=== PATIENT | female | born 1955 | race Caucasian/White ===

== ENCOUNTER 2017-07-19 12:25 | Observation (INO) ==
--- NOTE | 2017-07-19 12:27 | Emergency Department Note ---
Disposition Clinical Impression: Weakness, Light headed, Numbness and tingling of left leg Disposition: Admitted As Inpatient Condition: Good Referrals: Low Steinberg MD [Family Provider] - NONE,PCP [Primary Care Provider] - Forms: ED Satisfaction Letter Time of Disposition: 14:42 Weakness HPI - General Chief complaint: ED Weakness Stated complaint: WEAK/DIZZY Time Seen by Provider: 07/19/17 12:26 Source: patient Mode of arrival: ambulatory Limitations: no limitations Nursing Notes Reviewed: Yes Vital Signs Reviewed: Yes - History of Present Illness HPI Narrative: Patient is a 61-year-old female with past medical history previous CVA that has left her with residual left upper extremity and left lower extremity weakness. She was seen here initially for stroke and was sent to [place] due to the patient having hemorrhagic stroke. She was subsequently sent home. Since then , she has been having generalized weakness. She started having new onset tingling in her left lower extremity for the past 2-3 days. She also admits to lightheadedness. Denies any vertigo. Denies any other chest pain, shortness of breath, nausea, vomiting, fevers, diarrhea. She states that she is weak to the point that she can no longer ambulate safely by herself at home. She was recently treated for UTI as well, recently finished Macrobid within the past few days. No further dysuria, hematuria. She does admit to mild increase in frequency. - Related Data Allergies Allergy/AdvReac Type Severity Reaction Status Date / Time No Known Allergies Allergy Verified 05/07/17 22:18 All systems ED: reviewed and negative except as stated. Constitutional: Denies: fever Cardiovascular: Denies: chest pain, palpitations Respiratory: Denies: cough, dyspnea, wheezes Gastrointestinal: Denies: abdominal pain, nausea, vomiting, diarrhea Genitourinary: Reports: frequency. Denies: urgency, dysuria, hematuria, discharge Neurological: Denies: headache, weakness, numbness, paresthesias Endocrine: Reports: fatigue Past Medical History - Past Medical History Attestation: Yes The following information was validated with the patient. Source: patient Medical history: Reports: coronary artery disease, hypertension Psychiatric history: Reports: no psych history - Social History Smoking Status: Never smoker Smokeless Tobacco Status: No Alcohol use: Reports: none Drug use: Reports: none Physical Exam - General Limitations: no limitations General appearance: alert, in no apparent distress - Head Head exam: atraumatic, normocephalic, normal inspection - Eye Eye exam: Present: normal appearance, PERRL, EOMI - ENT ENT exam: normal exam, normal oropharynx, mucous membranes moist - Neck Neck exam: Present: normal inspection, full ROM, trachea midline - Chest Chest inspection: Present: normal inspection, symmetric chest wall rise - Respiratory Respiratory exam: Present: normal lung sounds bilaterally - Cardiovascular Cardiovascular exam: Present: regular rate, normal rhythm, normal heart sounds - Abdominal Exam Abdominal exam: Present: soft, Non-Tender. Absent: tenderness, distention, guarding, rebound, rigidity - Extremities Exam Extremities exam: Present: normal inspection, full ROM. Absent: tenderness, pedal edema - Neurological Exam Neurological exam: Present: alert, oriented X3, CN II-XII intact - Expanded Neurological Exam Patient oriented to: Present: person, place, time Speech: Present: fluid speech Cranial nerves: EOM function (II, III, IV, ): Normal, facial sensation (V): Normal, facial palsy (VII): Normal, spinal accessory function (XI): Normal, tongue deviation (XII): Normal Motor strength - LUE: 4/5 Motor strength - RUE: 5/5 Motor strength - LLE: 4/5 Motor strength - RLE: 5/5 Sensory exam upper extremity: light touch: Normal Sensory exam lower extremity: light touch: Normal Coma Scale Eye Opening: Spontaneous Coma Scale Motor Response: Obeys Commands Coma Scale Verbal Response: Oriented Coma Scale Total: 15 - Psychiatric Psychiatric exam: Present: normal affect, normal mood - Skin Skin exam: Present: warm, dry, intact, normal color Course Course Narrative: Patient has left upper extremity and left lower extremity chronic weakness that is baseline since her previous stroke. Basic workup showed no UTI, no major electrolyte abnormality, no major CBC abnormality. Chest x-ray was negative for any acute cardiopulmonary process. Head CT shows stable right basal ganglia stroke but no acute intracranial hemorrhage or abnormality. Patient is overall weak, unable to ambulate safely. We will admit to the hospitalist for further care. Recommend further MRI due to new-onset tingling in LLE 2-3 days ago, difficulty with ambulation. Patient would also benefit from PT/OT. Chest X-Ray 07/19/17 12:34 IMPRESSION: No acute process. D/ / Amparo Dennis MD / Amparo Dennis MD Interpreting Provider: Amparo Dennis MD Head CT 07/19/17 12:34 IMPRESSION: Stable sequela of right basal ganglia hemorrhage seen on prior CTs. No acute intracranial hemorrhage or acute intracranial abnormality. D/ / Mikael Horne MD / Mikael Horne MD Interpreting Provider: Mikael Horne MD Vital Signs Temperature 98.4 F 07/19/17 12:26 Pulse Rate 77 07/19/17 12:26 Respiratory Rate 16 07/19/17 12:26 Blood Pressure 141/96 07/19/17 12:26 O2 Sat by Pulse Oximetry 98 07/19/17 12:26 Temperature 98.4 F 07/19/17 12:26 Pulse Rate 77 07/19/17 13:53 Respiratory Rate 16 07/19/17 13:53 Blood Pressure 141/96 07/19/17 13:53 O2 Sat by Pulse Oximetry 97 07/19/17 13:53 Oxygen Delivery Oxygen Delivery Room Air Weakness - MDM Narrative Medical decision making narrative: Patient has left upper extremity and left lower extremity chronic weakness that is baseline since her previous stroke. Basic workup showed no UTI, no major electrolyte abnormality, no major CBC abnormality. Chest x-ray was negative for any acute cardiopulmonary process. Head CT shows stable right basal ganglia stroke but no acute intracranial hemorrhage or abnormality. Patient is overall weak, unable to ambulate safely. We will admit to the hospitalist for further care. Recommend further MRI due to new-onset tingling in LLE 2-3 days ago, difficulty with ambulation. Patient would also benefit from PT/OT. - Medical Records Medical records reviewed: Yes I reviewed the patient's medical records. - Lab Data Lab results reviewed: Yes I reviewed the patient's lab results. Result diagrams: 07/19/17 12:42 07/19/17 12:42 Lab Results 06/03/0707/19/17 07/19/17 Range/Units 12:42 12:42 12:42 WBC 6.0 (4.3-11.1) K/mcL RBC 3.68 L (3.82-4.97) M/mcL Hgb 12.1 (11.5-15.4) g/dL Hct 33.2 L (35.3-44.9) % MCV 90.2 (83.0-100.0) fL MCH 32.9 (28.0-33.3) pg MCHC 36.4 H (31.6-35.5) g/dL RDW 12.3 (11.5-14.5) % Plt Count 371 (140-400) K/mcL MPV 8.4 L (9.4-12.4) fL Immature Gran % 0.2 (0-4) % Seg Neutrophils % 74.9 % Lymphocytes % 19.8 % Monocytes % 4.5 % Eosinophils % 0.3 % Basophils % 0.3 % Neutrophils # 4.5 (1.6-8.9) K/mcL Lymphocytes # 1.2 (0.6-4.6) K/mcL Monocytes # 0.3 (0.0-1.3) K/mcL Eosinophils # 0.0 (0.0-0.6) K/mcL Basophils # 0.0 (0.0-0.2) K/mcL Sodium 141 (136-145) mEq/L Potassium 3.3 L (3.5-5.1) mEq/L Chloride 109 H (98-107) mEq/L Carbon Dioxide 24 (23-29) mEq/L BUN 13 (8-23) mg/dL Creatinine 0.60 (0.60-1.20) mg/dL Est GFR ( Amer) > 60 (> 60) Est GFR (Non-Af Amer) > 60 (> 60) BUN/Creatinine Ratio 22 (6-26) Glucose 119 H (70-105) mg/dL Calculated Osmolality 293 (280-300) Lactic Acid 0.9 (0.5-2.2) mmol/L Calcium 9.8 (8.6-10.3) mg/dL Total Bilirubin 0.4 (0.3-1.0) mg/dL AST 25 (13-39) Units/L ALT 22 (7-52) Units/L Alkaline Phosphatase 59 (34-104) Units/L Troponin I < 0.03 (< 0.04) ng/mL Serum Total Protein 7.0 (6.4-8.9) g/dL Albumin 4.3 (3.5-5.7) g/dL Globulin 2.7 (2.4-3.5) g/dL Albumin/Globulin Ratio 1.6 (1.1-2.2) TSH 0.757 (0.340-5.600) mcIU/mL Urine Color (Yellow) Urine Clarity (Clear) Urine pH (5.0-8.0) pH Units Ur Specific [place] (1.010-1.025) Urine Protein (Neg-Trace) mg/dL Urine Glucose (UA) (Normal) mg/dL Urine Ketones (Negative) mg/dL Urine Blood (Negative) Urine Nitrite (Negative) Urine Bilirubin (Negative) Urine Urobilinogen (Normal) mg/dL Ur Leukocyte Esterase (Negative) Urine Microscopic RBC (0-3) per hpf Ur Squamous Epith Cells (None-Few) per lpf Urine Bacteria (None-Few) per hpf Hyaline Casts (None-Few) per lpf Ur Culture Indicated? (NO) 07/19/17 Range/Units 12:59 WBC (4.3-11.1) K/mcL RBC (3.82-4.97) M/mcL Hgb (11.5-15.4) g/dL Hct (35.3-44.9) % MCV (83.0-100.0) fL MCH (28.0-33.3) pg MCHC (31.6-35.5) g/dL RDW (11.5-14.5) % Plt Count (140-400) K/mcL MPV (9.4-12.4) fL Immature Gran % (0-4) % Seg Neutrophils % % Lymphocytes % % Monocytes % % Eosinophils % % Basophils % % Neutrophils # (1.6-8.9) K/mcL Lymphocytes # (0.6-4.6) K/mcL Monocytes # (0.0-1.3) K/mcL Eosinophils # (0.0-0.6) K/mcL Basophils # (0.0-0.2) K/mcL Sodium (136-145) mEq/L Potassium (3.5-5.1) mEq/L Chloride (98-107) mEq/L Carbon Dioxide (23-29) mEq/L BUN (8-23) mg/dL Creatinine (0.60-1.20) mg/dL Est GFR ( Amer) (> 60) Est GFR (Non-Af Amer) (> 60) BUN/Creatinine Ratio (6-26) Glucose (70-105) mg/dL Calculated Osmolality (280-300) Lactic Acid (0.5-2.2) mmol/L Calcium (8.6-10.3) mg/dL Total Bilirubin (0.3-1.0) mg/dL AST (13-39) Units/L ALT (7-52) Units/L Alkaline Phosphatase (34-104) Units/L Troponin I (< 0.04) ng/mL Serum Total Protein (6.4-8.9) g/dL Albumin (3.5-5.7) g/dL Globulin (2.4-3.5) g/dL Albumin/Globulin Ratio (1.1-2.2) TSH (0.340-5.600) mcIU/mL Urine Color Yellow (Yellow) Urine Clarity Clear (Clear) Urine pH 7.0 (5.0-8.0) pH Units Ur Specific [place] 1.019 (1.010-1.025) Urine Protein Negative (Neg-Trace) mg/dL Urine Glucose (UA) Normal (Normal) mg/dL Urine Ketones 40 H (Negative) mg/dL Urine Blood Negative (Negative) Urine Nitrite Negative (Negative) Urine Bilirubin Negative (Negative) Urine Urobilinogen Normal (Normal) mg/dL Ur Leukocyte Esterase Negative (Negative) Urine Microscopic RBC 5-15 H (0-3) per hpf Ur Squamous Epith Cells Moderate H (None-Few) per lpf Urine Bacteria None Seen (None-Few) per hpf Hyaline Casts Few (None-Few) per lpf Ur Culture Indicated? NO (NO) - Radiology Data Radiology results reviewed: Yes I reviewed the patient's radiology results. Chest X-Ray 07/19/17 12:34 IMPRESSION: No acute process. D/ / Amparo Dennis MD / Amparo Dennis MD Interpreting Provider: Amapro Dennis MD Head CT 07/19/17 12:34 IMPRESSION: Stable sequela of right basal ganglia hemorrhage seen on prior CTs. No acute intracranial hemorrhage or acute intracranial abnormality. D/ / Mikael Horne MD / Mikael Horne MD Interpreting Provider: Mikael Horne MD - EKG Data EKG attestation: Yes I reviewed and interpreted this EKG. EKG results narrative: 07/19/2017 at 12:34. Normal sinus rhythm. Rate 65. ND 153. QRS 88. QTC 433. Normal axis. No acute ST elevation or depression. T-wave inversion and lead 3 that is chronic for the patient compared to EKG on 05/07/2017. S.B.A.R. - S.B.A.R. Situation: Demographics, MOA Background: Presenting Complaint, Relevant PMH, Meds, & Allergies Assessment: Vital Signs, Course and respsone to treatment, Exam Concerns, Patient/Family Expectation, Pertinant Lab Results Recommendation: Barrier(s) to disposition, Recommendation based on pending studies, treatments, or consults S.B.A.R. Report Given to: Dr. Salgado NIH Stroke Scale - Level of Consciousness LOC: Alert - LOC Questions LOC Questions: Answers both correctly - LOC Commands LOC Commands: Performs both correctly - Best Gaze Best Gaze: Normal - Visual Visual: No visual loss - Facial Palsy Facial Palsy: Normal - Motor Arms Motor Arm-Left: Drift, does NOT hit bed Motor Arm-Right: No drift for 10 seconds - Motor Legs Motor Leg-Left: Some effort against gravity, limb drifts to bed Motor Leg-Right: No drift for 5 seconds - Limb Ataxia Limb Ataxia: Absent of affected limb too weak to perform exam - Sensory Sensory: Normal - Best Language Best Language: No aphasia - Dysarthria Dysarthria: Normal - Extinction and Inattention Extinction and Inattention: Normal - NIHSS Total Score NIHSS Total Score: 3
[2017-07-19] MEDS ORDERED: 0.9 % Sodium Chloride 1,000 ML IVC ONE (12:35)
[2017-07-19 12:53] LABS: Basophils % 0.3 %; Eosinophils % 0.3 %; Hematocrit 33.2 % (35.3-44.9); Hemoglobin 12.1 g/dL (11.5-15.4); Immature Granulocytes % 0.2 % (0-4); Lymphocytes # 1.2 K/mcL (0.6-4.6); Lymphocytes % 19.8 %; Mean Corpuscular HGB Conc 36.4 g/dL (31.6-35.5); Mean Corpuscular Hemoglobin 32.9 pg (28.0-33.3); Mean Corpuscular Volume 90.2 fL (83.0-100.0); Mean Platelet Volume 8.4 fL (9.4-12.4); Monocytes % 4.5 %; Neutrophils # 4.5 K/mcL (1.6-8.9); Platelet Count 371 K/mcL (140-400); Red Blood Count 3.68 M/mcL (3.82-4.97); Red Cell Distribution Width 12.3 % (11.5-14.5); Segmented Neutrophils % 74.9 %
[2017-07-19 12:54] LABS: Monocytes # 0.3 K/mcL (0.0-1.3)
[2017-07-19 13:15] LABS: Troponin I < 0.03 ng/mL (< 0.04)
[2017-07-19 13:16] LABS: Alanine Aminotransferase 22 Units/L (7-52); Albumin 4.3 g/dL (3.5-5.7); Albumin/Globulin Ratio 1.6 (1.1-2.2); Alkaline Phosphatase 59 Units/L (34-104); Aspartate Amino Transferase 25 Units/L (13-39); BUN/Creatinine Ratio 22 (6-26); Bilirubin,Total 0.4 mg/dL (0.3-1.0); Blood Urea Nitrogen 13 mg/dL (8-23); Calcium 9.8 mg/dL (8.6-10.3); Carbon Dioxide 24 mEq/L (23-29); Chloride 109 mEq/L (98-107); Globulin 2.7 g/dL (2.4-3.5); Glucose 119 mg/dL (70-105); Osmolality,Calculated 293 (280-300); Potassium 3.3 mEq/L (3.5-5.1); Sodium 141 mEq/L (136-145); eGFR For African Americans > 60 (> 60); eGFR For Non-African Americans > 60 (> 60)
[2017-07-19 13:18] LABS: Bilirubin,Urine Negative (Negative); Blood,Urine Negative (Negative); Color,Urine Yellow (Yellow); Glucose,Urine (UA) Normal (Normal); Ketones,Urine 40 mg/dL (Negative); Leukocyte Esterase,Urine Negative (Negative); Nitrite,Urine Negative (Negative); Protein,Urine Negative (Neg-Trace); Specific Gravity,Urine 1.019 (1.010-1.025); Urobilinogen,Urine Normal (Normal)
[2017-07-19 13:22] LABS: Bacteria,Urine None Seen per hpf (None-Few); Hyaline Casts,Urine Few per lpf (None-Few); Squamous Epithelial Cell,Urine Moderate per lpf (None-Few)
[2017-07-19 13:24] LABS: Clarity,Urine Clear (Clear)
[2017-07-19 13:29] LABS: Thyroid Stimulating Hormone 0.757 mcIU/mL (0.340-5.600)
--- NOTE | 2017-07-19 13:40 | Emergency Department Note ---
Disposition Clinical Impression: Weakness Disposition: Still a Patient Forms: ED Satisfaction Letter General Adult HPI - General Chief complaint: ED Weakness Stated complaint: WEAK/DIZZY Time Seen by Provider: 07/19/17 12:26 Source: patient Mode of arrival: ambulatory Limitations: no limitations - History of Present Illness Pain Scale: 0 - Related Data Allergies Allergy/AdvReac Type Severity Reaction Status Date / Time No Known Allergies Allergy Verified 05/07/17 22:18 Past Medical History - Past Medical History Medical history: Reports: coronary artery disease, hypertension Psychiatric history: Reports: no psych history - Social History Smoking Status: Never smoker Smokeless Tobacco Status: No Alcohol use: Reports: none Drug use: Reports: none Physical Exam - General Limitations: no limitations General appearance: alert, in no apparent distress Course Vital Signs Temperature 98.4 F 07/19/17 12:26 Pulse Rate 77 07/19/17 12:26 Respiratory Rate 16 07/19/17 12:26 Blood Pressure 141/96 07/19/17 12:26 O2 Sat by Pulse Oximetry 98 07/19/17 12:26 Temperature 98.4 F 07/19/17 12:26 Pulse Rate 77 07/19/17 12:26 Respiratory Rate 16 07/19/17 12:26 Blood Pressure 141/96 07/19/17 12:26 O2 Sat by Pulse Oximetry 98 07/19/17 12:26 Oxygen Delivery Oxygen Delivery Room Air Medical Decision Making - Lab Data Result diagrams: 07/19/17 12:42 07/19/17 12:42 Lab Results 07/19/17 07/19/17 07/19/17 Range/Units 12:42 12:42 12:42 WBC 6.0 (4.3-11.1) K/mcL RBC 3.68 L (3.82-4.97) M/mcL Hgb 12.1 (11.5-15.4) g/dL Hct 33.2 L (35.3-44.9) % MCV 90.2 (83.0-100.0) fL MCH 32.9 (28.0-33.3) pg MCHC 36.4 H (31.6-35.5) g/dL RDW 12.3 (11.5-14.5) % Plt Count 371 (140-400) K/mcL MPV 8.4 L (9.4-12.4) fL Immature Gran % 0.2 (0-4) % Seg Neutrophils % 74.9 % Lymphocytes % 19.8 % Monocytes % 4.5 % Eosinophils % 0.3 % Basophils % 0.3 % Neutrophils # 4.5 (1.6-8.9) K/mcL Lymphocytes # 1.2 (0.6-4.6) K/mcL Monocytes # 0.3 (0.0-1.3) K/mcL Eosinophils # 0.0 (0.0-0.6) K/mcL Basophils # 0.0 (0.0-0.2) K/mcL Sodium 141 (136-145) mEq/L Potassium 3.3 L (3.5-5.1) mEq/L Chloride 109 H (98-107) mEq/L Carbon Dioxide 24 (23-29) mEq/L BUN 13 (8-23) mg/dL Creatinine 0.60 (0.60-1.20) mg/dL Est GFR ( Amer) > 60 (> 60) Est GFR (Non-Af Amer) > 60 (> 60) BUN/Creatinine Ratio 22 (6-26) Glucose 119 H (70-105) mg/dL Calculated Osmolality 293 (280-300) Lactic Acid 0.9 (0.5-2.2) mmol/L Calcium 9.8 (8.6-10.3) mg/dL Total Bilirubin 0.4 (0.3-1.0) mg/dL AST 25 (13-39) Units/L ALT 22 (7-52) Units/L Alkaline Phosphatase 59 (34-104) Units/L Troponin I < 0.03 (< 0.04) ng/mL Serum Total Protein 7.0 (6.4-8.9) g/dL Albumin 4.3 (3.5-5.7) g/dL Globulin 2.7 (2.4-3.5) g/dL Albumin/Globulin Ratio 1.6 (1.1-2.2) TSH 0.757 (0.340-5.600) mcIU/mL Urine Color (Yellow) Urine Clarity (Clear) Urine pH (5.0-8.0) pH Units Ur Specific [place] (1.010-1.025) Urine Protein (Neg-Trace) mg/dL Urine Glucose (UA) (Normal) mg/dL Urine Ketones (Negative) mg/dL Urine Blood (Negative) Urine Nitrite (Negative) Urine Bilirubin (Negative) Urine Urobilinogen (Normal) mg/dL Ur Leukocyte Esterase (Negative) Urine Microscopic RBC (0-3) per hpf Ur Squamous Epith Cells (None-Few) per lpf Urine Bacteria (None-Few) per hpf Hyaline Casts (None-Few) per lpf Ur Culture Indicated? (NO) 07/19/17 Range/Units 12:59 WBC (4.3-11.1) K/mcL RBC (3.82-4.97) M/mcL Hgb (11.5-15.4) g/dL Hct (35.3-44.9) % MCV (83.0-100.0) fL MCH (28.0-33.3) pg MCHC (31.6-35.5) g/dL RDW (11.5-14.5) % Plt Count (140-400) K/mcL MPV (9.4-12.4) fL Immature Gran % (0-4) % Seg Neutrophils % % Lymphocytes % % Monocytes % % Eosinophils % % Basophils % % Neutrophils # (1.6-8.9) K/mcL Lymphocytes # (0.6-4.6) K/mcL Monocytes # (0.0-1.3) K/mcL Eosinophils # (0.0-0.6) K/mcL Basophils # (0.0-0.2) K/mcL Sodium (136-145) mEq/L Potassium (3.5-5.1) mEq/L Chloride (98-107) mEq/L Carbon Dioxide (23-29) mEq/L BUN (8-23) mg/dL Creatinine (0.60-1.20) mg/dL Est GFR ( Amer) (> 60) Est GFR (Non-Af Amer) (> 60) BUN/Creatinine Ratio (6-26) Glucose (70-105) mg/dL Calculated Osmolality (280-300) Lactic Acid (0.5-2.2) mmol/L Calcium (8.6-10.3) mg/dL Total Bilirubin (0.3-1.0) mg/dL AST (13-39) Units/L ALT (7-52) Units/L Alkaline Phosphatase (34-104) Units/L Troponin I (< 0.04) ng/mL Serum Total Protein (6.4-8.9) g/dL Albumin (3.5-5.7) g/dL Globulin (2.4-3.5) g/dL Albumin/Globulin Ratio (1.1-2.2) TSH (0.340-5.600) mcIU/mL Urine Color Yellow (Yellow) Urine Clarity Clear (Clear) Urine pH 7.0 (5.0-8.0) pH Units Ur Specific [place] 1.019 (1.010-1.025) Urine Protein Negative (Neg-Trace) mg/dL Urine Glucose (UA) Normal (Normal) mg/dL Urine Ketones 40 H (Negative) mg/dL Urine Blood Negative (Negative) Urine Nitrite Negative (Negative) Urine Bilirubin Negative (Negative) Urine Urobilinogen Normal (Normal) mg/dL Ur Leukocyte Esterase Negative (Negative) Urine Microscopic RBC 5-15 H (0-3) per hpf Ur Squamous Epith Cells Moderate H (None-Few) per lpf Urine Bacteria None Seen (None-Few) per hpf Hyaline Casts Few (None-Few) per lpf Ur Culture Indicated? NO (NO) Attestation Statement - Attestation Attestation: I examined this patient and my medical decision-making was reviewed with the Resident Physician. I agree with the documented findings, disposition and treatment plan as described except to the extent set forth below. 61 year old female presents to the ED with complaints of weakness and dizziness and was most recently diagnosed with a UTI. Patient has a stable hemmorahege in her medical history. We will do weakness wokrup including a HCT and repeat UA. Patinet does not have any focal neuro defecits.
[2017-07-19] MEDS ORDERED: Ipratropium/Albuterol Neb 3 ML IH PRN (15:17)
[2017-07-19] MEDS ORDERED: Naloxone 0.4 MG/ML INJ IVP PRN (15:21)
[2017-07-19] MEDS ORDERED: *HR* HYDROcodone/Acet 5/325 mg TABLET PO PRN (15:21)
--- NOTE | 2017-07-19 15:25 | Internal Med History&Physical ---
Date of Encounter: 07/19/17 Time of Encounter: 15:23 Internal Medicine - H&P: HPI Chief complaint: Weakness, lightheadedness Admitted From: Emergency Dept History of present illness: Ms. Galeano is a 61 year old female with a past medical history of hypertension, CAD status post stents and recent hemorrhagic CVA on the right basal ganglia back in April with left residual weakness. Patient has been more sleepy lately in the past 3 days, feeling lightheaded, complaining of left sided numbness mainly in her knee and on and off confusion, she is oriented but thinking is very slow. Potassium is 3.3. Was recently treated for a UTI with Macrobid a few days ago, today's UA shows microscopic red blood cells, no bacteria and moderate squamous epithelial cells. CT scan of the head showed sequela of the right basal ganglia hemorrhagic stroke with no acute abnormalities. Has been having constant nausea, unable to eat or drink normally, appears to be dehydrated Past Med Surg Social Fam HX - Past Medical History Medical history: coronary artery disease (Status post stents), CVA (Right hemorrhagic stroke in the right basal ganglia with residual left hemiparesis), hypertension, other (Depression) Additional medical history: cardiac stents Psychiatric history: no psych history - Past Surgical History Surgical History: other (Cardiac catheterization) - Social History Smoking Status: Never smoker Smokeless Tobacco Status: No Alcohol use: none Drug use: none - Additional Family History Additional family history: Father and mother with CABG, father with diabetes Internal Medicine - H&P: Meds Atorvastatin Calcium [Lipitor] 20 mg PO DAILY 07/19/17 [History] Baclofen [Lioresal] 10 mg PO DAILY PRN 07/19/17 [History] DULoxetine [Cymbalta] 30 mg PO QPM 07/19/17 [History] Duloxetine HCl [Cymbalta] 60 mg PO QAM 07/19/17 [History] Ibuprofen [Ibu] 800 mg PO TID PRN 07/19/17 [History] Lisinopril [Zestril] 5 mg PO DAILY 07/19/17 [History] Metoprolol Succinate [Toprol Xl] 25 mg PO DAILY 07/19/17 [History] Oxybutynin Chloride [Ditropan Xl] 5 mg PO DAILY 07/19/17 [History] 3 Allergy/AdvReac Type Severity Reaction Status Date / Time No Known Allergies Allergy Verified 05/07/17 22:18 All Systems PM: A 10-system review of systems was performed and is negative for pertinent findings except as documented above in the HPI. Review of systems: Denies any chest pressures or breath, other systems out of the 10 reviewed were negative - Constitutional Vitals: Temp Pulse Resp BP Pulse Ox 98.4 F 77 16 141/96 97 07/19/17 12:26 07/19/17 13:53 07/19/17 15:16 07/19/17 15:16 07/19/17 13:53 General appearance: Present: A&O X 3 - Head Head exam: Present: atraumatic, normocephalic Additional comments: Dry mucosa, appears dehydrated - Eye Eye exam: Present: PERRL, conjuntiva pink, sclera anicteric Pupils: Present: PERRL - Neck Neck exam general surgery: Present: supple, trachea midline. Absent: lymphadenopathy - Respiratory Respiratory exam: Present: CTAB. Absent: accessory muscle use, rales, rhonchi, wheezes - Cardiovascular Cardiovascular exam: Present: RRR, +S1, +S2. Absent: diastolic murmur, gallop, rubs, systolic murmur - GI/Abdominal GI/Abdominal exam: Present: normal bowel sounds, soft, no peritoneal signs. Absent: distended, tenderness - Extremities Exam Extremities exam: Present: warm, radial pulses palpable and symmetrical. Absent : calf tenderness, cyanotic, pedal edema Additional comments: Residual left hemiparesis - Neurological Exam Neurological exam: Present: CN II-XII intact, oriented X3, no focal deficits. Absent: pronater drift, facial droop, speech deficit - Skin Skin exam: Present: dry, intact Internal Med - H&P Results - Labs CBC & Chem 7: 07/19/17 12:42 07/19/17 12:42 - Assessment and plan (1) Dehydration Current Visit: Yes Status: Acute Assessment and plan: Weakness and confusion with dehydration Continue IV fluids with potassium Fall precautions, check orthostatics Physical therapy and occupational therapy consults Omeprazole for GI prophylaxis and subcutaneous tenderness heparin for DVT prophylaxis. The patient will be admitted for observation. Full code. She does not want to be intubated for a long period of time, we will decide on her final decision of CODE STATUS soon. Time spent on this admission 40 minutes (2) History of hemorrhagic cerebrovascular accident (CVA) with residual deficit Current Visit: Yes Status: Acute Assessment and plan: Order MRI of the brain (3) Hypertension Current Visit: Yes Status: Acute Assessment and plan: Stable on lisinopril Qualifiers: Hypertension type: essential hypertension Qualified Code(s): I10 - Essential (primary) hypertension (4) Hypokalemia Current Visit: Yes Status: Acute Assessment and plan: Replete (5) Weakness Current Visit: Yes Status: Acute (6) Light headed Current Visit: Yes Status: Acute (7) Numbness and tingling of left leg Current Visit: Yes Status: Acute - Time Spent With Patient Total time spent is greater than 50% in coordination of care (as documented) at patient's floor/unit and/or counseling patient:
[2017-07-19] MEDS: Metoprolol XL (24 HR) Succ 25 MG TAB.ER.24H PO SCH (18:03)
[2017-07-19] MEDS: *HR* Heparin 5,000 UNIT/ML VIAL SQ SCH (18:04)
--- NOTE | 2017-07-19 18:20 | Electrocardiograph Report ---
[facility] [employer] Test Date: 2017-07-19 Pat Name: Talia Galeano Department: 103 Room: 3B Gender: F Supervisor Stripping: NASEEM : 1955 Requested By: Uziel Montague Order Number: [id number] Reading MD: Anshu Camacho Measurements Intervals [place] Rate: 65 P: 13 [place]: 153 QRS: 5 QRSD: 88 T: 6 QT: 422 QTc: 433 Interpretive Statements SINUS RHYTHM wnl Electronically Signed On 07-19-2017 18:19:06 EDT by Anshu Camacho
[2017-07-20] MEDS: *HR* Heparin 5,000 UNIT/ML VIAL SQ SCH (06:24)
[2017-07-20] MEDS: Acetaminophen 325 MG TABLET PO PRN ×2 (06:56→14:24)
[2017-07-20 07:19] LABS: BUN/Creatinine Ratio 18 (6-26); Blood Urea Nitrogen 11 mg/dL (8-23); Calcium 9.3 mg/dL (8.6-10.3); Carbon Dioxide 24 mEq/L (23-29); Chloride 110 mEq/L (98-107); Chol/HDL Ratio 4.3 (0-4.9); Cholesterol 150 mg/dL (< 200); Glucose 91 mg/dL (70-105); HDL Cholesterol 35 mg/dL (40-59); LDL Cholesterol,Calculated 75 mg/dL (0-99); Osmolality,Calculated 295 (280-300); Potassium 3.9 mEq/L (3.5-5.1); Sodium 143 mEq/L (136-145); Triglycerides 199 mg/dL (< 150); eGFR For African Americans > 60 (> 60); eGFR For Non-African Americans > 60 (> 60)
[2017-07-20] MEDS: Metoprolol XL (24 HR) Succ 25 MG TAB.ER.24H PO SCH (09:08)
[2017-07-20] MEDS ORDERED: Ondansetron ODT 4 MG TAB.RAPDIS SL PRN (09:28)
[2017-07-20 11:44] VITALS: BP 143/73
--- NOTE | 2017-07-20 14:58 | Discharge Summary ---
- NOTES TO OUTPATIENT PROVIDER Notes to Outpatient Provider: Recommend follow-up within one week Date of Encounter: 07/20/17 Time of Encounter: 14:52 - Discharge Diagnosis (1) Weakness Priority: Primary Status: Acute (2) Light headed Priority: Primary Status: Acute (3) Numbness and tingling of left leg Priority: Primary Status: Acute (4) History of hemorrhagic cerebrovascular accident (CVA) with residual deficit Priority: Primary Status: Acute (5) Hypertension Priority: Primary Status: Acute Qualifiers: Hypertension type: essential hypertension Qualified Code(s): I10 - Essential (primary) hypertension (6) Hypokalemia Priority: Primary Status: Acute (7) Dehydration Priority: Primary Status: Acute Hospital course: Ms. Galeano is a 61 year old female hypertension, CAD status post stents and recent hemorrhagic CVA on the right basal ganglia with left residual weakness presented to [facility] on 07/19/2017 with complaints of feeling "more sleepy lately" of the last 3 days, feeling lightheaded and complaining of left sided numbness mainly in her knee and on and off confusion. She was placed in observation status for further workup and treatment. She underwent a head CT that showed stable sequela of right basal ganglia hemorrhage seen on prior CTs, no acute intracranial hemorrhage or acute intracranial abnormality. Brain MRI consistent with known prior hemorrhage. No acute infarct. Orthostatic BPs not consistent with orthostatic hypotension. Patient reported thinking that she took too many of her BP medications and that was causing her confusion and weakness. She also reported nausea over the past couple days and had not been eating well which she thinks also contributed to her weakness. She was found to be hypokalemic with potassium of 3.3 which was replaced and normalized. She was evaluated by PT who recommended returning home continuing home health PT services. Patient returned to baseline and requested discharge home. She was discharged home in stable condition with continuing home health services. Advised follow-up with PCP within one week. Discharge discussed with: patient (Seen and examined at bedside. Patient is new to me. Information obtained from chart review and patient report. Patient says she is back to baseline and has requested to be discharge multiple times today. Patient's husbands rarely receiving treatment in the cancer center and patient is adamant about going home. Says she has a friend who is going to be seen with her for the next couple days. Still complaining of being a little weak but overall improved. Tolerating regular diet.) - Time Spent with Patient Total time spent providing and/or coordinating discharge services: - Discharge Medications Home Medications: Atorvastatin Calcium [Lipitor] 20 mg PO DAILY 07/19/17 [History] Baclofen [Lioresal] 10 mg PO DAILY PRN 07/19/17 [History] DULoxetine [Cymbalta] 30 mg PO QPM 07/19/17 [History] Duloxetine HCl [Cymbalta] 60 mg PO QAM 07/19/17 [History] Ibuprofen [Ibu] 800 mg PO TID PRN 07/19/17 [History] Lisinopril [Zestril] 5 mg PO DAILY 07/19/17 [History] Metoprolol Succinate [Toprol Xl] 25 mg PO DAILY 07/19/17 [History] Oxybutynin Chloride [Ditropan Xl] 5 mg PO DAILY 07/19/17 [History] Allergies/Adverse Reactions: 3 Allergy/AdvReac Type Severity Reaction Status Date / Time No Known Allergies Allergy Verified 05/07/17 22:18 Date of admission: 07/19/17 14:37 Primary care physician: PCP NONE Discharging clinician: Julianne Gaytan Anticipated date of discharge: 07/20/17 - Constitutional Vitals: Temp Pulse Resp BP Pulse Ox 98.4 F 67 18 143/73 97 07/20/17 11:43 07/20/17 11:43 07/20/17 11:43 07/20/17 11:43 07/20/17 11:43 General appearance: Present: A&O X 3, no acute distress - Head Head exam: Present: atraumatic, normocephalic - Eye Eye exam: Present: PERRL, conjuntiva pink, sclera anicteric Pupils: Present: PERRL - Neck Neck exam general surgery: Present: supple, trachea midline. Absent: lymphadenopathy - Respiratory Respiratory exam: Present: CTAB. Absent: accessory muscle use, rales, rhonchi, wheezes - Cardiovascular Cardiovascular exam: Present: RRR, +S1, +S2. Absent: diastolic murmur, gallop, rubs, systolic murmur - GI/Abdominal GI/Abdominal exam: Present: normal bowel sounds, soft, no peritoneal signs. Absent: distended, tenderness - Extremities Exam Extremities exam: Present: warm, radial pulses palpable and symmetrical. Absent : calf tenderness, cyanotic, pedal edema - Neurological Exam Neurological exam: Present: CN II-XII intact, oriented X3. Absent: no focal deficits, strengths equal and symetr throughout (Right LE strength=5/5. Left LE strength=4/5. RUE 5/5 strength LUE 3/5), pronater drift, facial droop, speech deficit - Skin Skin exam: Present: dry, intact - Patient Status Disposition: Home Health Service Condition: Good Functional capacity at discharge: uses cane/walker Overall status at discharge: patient is back to baseline - Discharge Instructions Instructions: Weakness (GEN) Follow Up With: NONE,PCP [Primary Care Provider] - (Please call your PCP on Saturday to schedule a follow-up appt. ) - Diet and Activity Activity: as per physical therapy, increase activity as tolerated Diet: advance to your usual diet
== END 2017-07-20 15:52 | disposition home health service (06) ==
LOC: 3BNU 12:25 → EMEROO 12:25 → 3BNU 15:17
PROVIDERS: ADMIT Family Medicine; ATTEND Family Medicine

== ENCOUNTER 2020-10-14 21:55 | Observation (INO) ==
[2020-10-14 23:31] LABS: INR 1.1; Prothrombin Time 12.9 Seconds (9.4-12.1)
[2020-10-14 23:32] LABS: Hematocrit 35.1 % (35.3-44.9); Hemoglobin 12.3 g/dL (11.5-15.4); Mean Corpuscular Hemoglobin 32.5 pg (28.0-33.3); Mean Corpuscular Volume 92.9 fL (83.0-100.0); Mean Platelet Volume 8.9 fL (9.4-12.4); Platelet Count 303 K/mcL (140-400); Red Blood Count 3.78 M/mcL (3.82-4.97); Red Cell Distribution Width 11.8 % (11.5-14.5); White Blood Count 7.9 K/mcL (4.3-11.1)
[2020-10-14 23:44] LABS: BUN/Creatinine Ratio 27 (6-26); Blood Urea Nitrogen 16 mg/dL (8-23); Calcium 9.3 mg/dL (8.6-10.3); Carbon Dioxide 23 mEq/L (23-29); Chloride 104 mEq/L (98-107); Glucose 82 mg/dL (70-105); Osmolality,Calculated 288 (280-300); Potassium 3.5 mEq/L (3.5-5.1); Sodium 139 mEq/L (136-145); eGFR For African Americans > 60 (> 60); eGFR For Non-African Americans > 60 (> 60)
[2020-10-14 23:45] LABS: Troponin I < 0.03 ng/mL (< 0.04)
[2020-10-14] MEDS ORDERED: Isovue-370 500 ML BOTTLE IVP ONE (23:54)
[2020-10-15] MEDS ORDERED: Naloxone 0.4 MG/ML INJ IVP PRN (01:53)
[2020-10-15] MEDS ORDERED: Perflutren Lipid Microsphere 1.3 ML in 0.9 % Sodium Chloride 8.7 ML IVP PRN (02:15)
[2020-10-15] MEDS ORDERED: 0.9 % Sodium Chloride 1,000 ML IVC SCH (03:15)
[2020-10-15 05:27] LABS: Hematocrit 34.5 % (35.3-44.9); Hemoglobin 12.1 g/dL (11.5-15.4); Mean Corpuscular HGB Conc 35.1 g/dL (31.6-35.5); Mean Corpuscular Hemoglobin 32.8 pg (28.0-33.3); Mean Corpuscular Volume 93.5 fL (83.0-100.0); Mean Platelet Volume 8.9 fL (9.4-12.4); Platelet Count 305 K/mcL (140-400); Red Blood Count 3.69 M/mcL (3.82-4.97); Red Cell Distribution Width 11.8 % (11.5-14.5); White Blood Count 7.5 K/mcL (4.3-11.1)
[2020-10-15 05:53] LABS: Cholesterol 151 mg/dL (< 200); HDL Cholesterol 38 mg/dL (40-59); LDL Cholesterol,Calculated 86 mg/dL (< 100); LDL Cholesterol,Direct 93 mg/dL (75-193); Triglycerides 134 mg/dL (< 150); Troponin I < 0.03 ng/mL (< 0.04)
[2020-10-15 05:56] LABS: INR 1.1; Prothrombin Time 12.9 Seconds (9.4-12.1)
[2020-10-15 06:10] LABS: Alanine Aminotransferase 12 Units/L (7-52); Albumin/Globulin Ratio 1.6 (1.1-2.2); Alkaline Phosphatase 50 Units/L (34-104); Aspartate Amino Transferase 17 Units/L (13-39); BUN/Creatinine Ratio 23 (6-26); Bilirubin,Total 0.5 mg/dL (0.3-1.0); Blood Urea Nitrogen 14 mg/dL (8-23); Calcium 9.2 mg/dL (8.6-10.3); Carbon Dioxide 20 mEq/L (23-29); Chloride 106 mEq/L (98-107); Chol/HDL Ratio 3.8 (0-4.9); Cholesterol 145 mg/dL (< 200); Globulin 2.5 g/dL (2.4-3.5); Glucose 69 mg/dL (70-105); HDL Cholesterol 38 mg/dL (40-59); LDL Cholesterol,Calculated 81 mg/dL (< 100); Osmolality,Calculated 285 (280-300); Potassium 3.5 mEq/L (3.5-5.1); Sodium 138 mEq/L (136-145); Total Protein 6.5 g/dL (6.4-8.9); Triglycerides 131 mg/dL (< 150); eGFR For African Americans > 60 (> 60); eGFR For Non-African Americans > 60 (> 60)
[2020-10-15] MEDS ORDERED: Aspirin 325 MG TABLET PO ONE (08:15)
[2020-10-15] MEDS ORDERED: Aspirin 81 MG TAB.CHEW PO SCH (09:00)
[2020-10-15 11:39] LABS: Estimated Average Glucose 91 mg/dl; Hemoglobin A1C 4.8 %
[2020-10-15] MEDS ORDERED: SUMAtriptan succinate 25 MG TABLET PO PRN (17:10)
[2020-10-15] MEDS: Baclofen 10 MG TABLET PO PRN (18:14)
[2020-10-16] MEDS: Sucralfate 1 GM TABLET PO SCH (08:16)
[2020-10-16] MEDS: Metoprolol XL (24 HR) Succ 25 MG TAB.ER.24H PO SCH (08:16)
[2020-10-16] MEDS: Baclofen 10 MG TABLET PO PRN ×2 (08:16→21:33)
[2020-10-16] MEDS: Aspirin 81 MG TAB.CHEW PO SCH (08:16)
[2020-10-16] MEDS: lisinopriL 5 MG TABLET PO SCH (15:12)
[2020-10-16] MEDS: *HR* Heparin 5,000 UNIT/ML VIAL SQ SCH (17:17)
[2020-10-16] MEDS ORDERED: *HR* HYDROcodone/Acet 5/325 mg TABLET PO ONE (21:49)
[2020-10-17 01:27] LABS: Hematocrit 34.8 % (35.3-44.9); Hemoglobin 11.9 g/dL (11.5-15.4); Mean Corpuscular HGB Conc 34.2 g/dL (31.6-35.5); Mean Corpuscular Volume 93.5 fL (83.0-100.0); Mean Platelet Volume 9.3 fL (9.4-12.4); Platelet Count 316 K/mcL (140-400); Red Blood Count 3.72 M/mcL (3.82-4.97); Red Cell Distribution Width 11.9 % (11.5-14.5); White Blood Count 8.7 K/mcL (4.3-11.1)
[2020-10-17 01:45] LABS: BUN/Creatinine Ratio 26 (6-26); Blood Urea Nitrogen 17 mg/dL (8-23); Calcium 9.4 mg/dL (8.6-10.3); Carbon Dioxide 24 mEq/L (23-29); Chloride 105 mEq/L (98-107); Glucose 112 mg/dL (70-105); Osmolality,Calculated 290 (280-300); Potassium 3.7 mEq/L (3.5-5.1); Sodium 139 mEq/L (136-145); eGFR For African Americans > 60 (> 60); eGFR For Non-African Americans > 60 (> 60)
[2020-10-17] MEDS: *HR* Heparin 5,000 UNIT/ML VIAL SQ SCH ×2 (05:09→17:20)
[2020-10-17] MEDS: Sucralfate 1 GM TABLET PO SCH (08:35)
[2020-10-17] MEDS: lisinopriL 5 MG TABLET PO SCH (08:35)
[2020-10-17] MEDS: Aspirin 81 MG TAB.CHEW PO SCH (08:36)
[2020-10-17] MEDS: Metoprolol XL (24 HR) Succ 25 MG TAB.ER.24H PO SCH (08:36)
[2020-10-17] MEDS: *HR* HYDROcodone/Acet 5/325 mg TABLET PO PRN ×2 (12:24→20:39)
[2020-10-18] MEDS: *HR* Heparin 5,000 UNIT/ML VIAL SQ SCH ×2 (05:08→17:16)
[2020-10-18] MEDS: Aspirin 81 MG TAB.CHEW PO SCH (09:01)
[2020-10-18] MEDS: lisinopriL 5 MG TABLET PO SCH (09:01)
[2020-10-18] MEDS: *HR* HYDROcodone/Acet 5/325 mg TABLET PO PRN (09:02)
[2020-10-18] MEDS: Sucralfate 1 GM TABLET PO SCH (09:02)
[2020-10-18] MEDS: Metoprolol XL (24 HR) Succ 25 MG TAB.ER.24H PO SCH (09:02)
[2020-10-19] MEDS: Baclofen 10 MG TABLET PO PRN (01:23)
[2020-10-19] MEDS: *HR* Heparin 5,000 UNIT/ML VIAL SQ SCH ×2 (05:06→16:09)
[2020-10-19] MEDS: lisinopriL 5 MG TABLET PO SCH (08:20)
[2020-10-19] MEDS: Aspirin 81 MG TAB.CHEW PO SCH (08:20)
[2020-10-19] MEDS: Metoprolol XL (24 HR) Succ 25 MG TAB.ER.24H PO SCH (08:20)
[2020-10-19] MEDS: Sucralfate 1 GM TABLET PO SCH (08:20)
[2020-10-19] MEDS: *HR* HYDROcodone/Acet 5/325 mg TABLET PO PRN (10:01)
[2020-10-19] MEDS ORDERED: Loratadine 10 MG TABLET PO ONE (14:11)
[2020-10-20] MEDS: *HR* Heparin 5,000 UNIT/ML VIAL SQ SCH ×2 (04:47→17:46)
[2020-10-20] MEDS: lisinopriL 5 MG TABLET PO SCH (07:37)
[2020-10-20] MEDS: Sucralfate 1 GM TABLET PO SCH (07:37)
[2020-10-20] MEDS: Metoprolol XL (24 HR) Succ 25 MG TAB.ER.24H PO SCH (07:38)
[2020-10-20] MEDS: Aspirin 81 MG TAB.CHEW PO SCH (07:38)
[2020-10-20] MEDS: Sennosides/Docusate Sodium TABLET PO PRN (17:56)
[2020-10-21] MEDS: *HR* Heparin 5,000 UNIT/ML VIAL SQ SCH ×2 (05:16→18:16)
[2020-10-21 05:34] LABS: Bilirubin,Urine Negative (Negative); Blood,Urine Negative (Negative); Clarity,Urine Clear (Clear); Color,Urine Light-Yellow (Yellow); Glucose,Urine (UA) Normal (Normal); Ketones,Urine Negative (Negative); Leukocyte Esterase,Urine Negative (Negative); Nitrite,Urine Negative (Negative); PH,Urine 6.5 pH Units (5.0-8.0); Protein,Urine Negative (Neg-Trace); Specific Gravity,Urine 1.015 (1.010-1.025); Urobilinogen,Urine Normal (Normal)
[2020-10-21] MEDS: lisinopriL 5 MG TABLET PO SCH (07:47)
[2020-10-21] MEDS: Aspirin 81 MG TAB.CHEW PO SCH (07:47)
[2020-10-21] MEDS: Metoprolol XL (24 HR) Succ 25 MG TAB.ER.24H PO SCH (07:47)
[2020-10-21] MEDS: Sucralfate 1 GM TABLET PO SCH (07:47)
[2020-10-21] MEDS: Loratadine 10 MG TABLET PO SCH (12:34)
[2020-10-21] MEDS: *HR* HYDROcodone/Acet 5/325 mg TABLET PO PRN (14:53)
[2020-10-21] MEDS: Sennosides/Docusate Sodium TABLET PO PRN (18:16)
[2020-10-21] MEDS: Baclofen 10 MG TABLET PO PRN (20:08)
[2020-10-22] MEDS: *HR* Heparin 5,000 UNIT/ML VIAL SQ SCH (05:11)
[2020-10-22] MEDS: lisinopriL 5 MG TABLET PO SCH (09:06)
[2020-10-22] MEDS: Sucralfate 1 GM TABLET PO SCH (09:06)
[2020-10-22] MEDS: Metoprolol XL (24 HR) Succ 25 MG TAB.ER.24H PO SCH (09:06)
[2020-10-22] MEDS: Loratadine 10 MG TABLET PO SCH (09:07)
[2020-10-22] MEDS: Aspirin 81 MG TAB.CHEW PO SCH (09:07)
[2020-10-22] MEDS: *HR* HYDROcodone/Acet 5/325 mg TABLET PO PRN (09:24)
[2020-10-22 10:57] VITALS: BP 143/84; PULSE 94; TEMP 98.4; O2SAT 97
== END 2020-10-22 12:06 | disposition home or self-care (01) ==
LOC: 3BNU 21:55 → EMEROOARM 21:55 → SUATTDRO 10-15 01:14 → 3BNU 10-15 01:52
PROVIDERS: ADMIT Internal Medicine; ATTEND Internal Medicine